=== PATIENT | female | born 1965 | race Caucasian/White ===

== ENCOUNTER 2017-12-28 11:17 | Emergency (ER) | payer OTHER, BC ==
[2017-12-28 11:23] VITALS: BP 140/85; PULSE 66; TEMP 97; BMI 38.7
--- NOTE | 2017-12-28 11:54 | PDOC ---
History of Present Illness - General Chief Complaint: Injury Stated Complaint: INJURY Time Seen by Provider: 12/28/17 11:44 - History of Present Illness Initial Comments: 12/28/17 11:59 52 yo F with no significant pmh who presents with ALBERTO 2/2 closed head injury. 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 The ladder hit the left side temporal region of pt. head and she hit the right side of her head on the side of concrete wall. Now with dull left sided temporal ALBERTO. ALBERTO is stable non radiating. Denies LOC, but endorses transient episode of lightheadedness, following trauma. Denies neck/ back trauma, laceration, convulsion, confusion, vertigo, tinnitus, neck stiffness, facial injury, weakness, sensory change. Denies N/V, F/C, CP, SOB, abdominal pain. Denies anticoagulation. Denies OTC pain management. Past History - Past Medical History Allergies/Adverse Reactions: Allergies Allergy/AdvReac Type Severity Reaction Status Date / Time Sulfa (Sulfonamide Allergy Hives Verified 12/28/17 11:19 Antibiotics) [Sulfa(Sulfonamide Antibiotics)] Home Medications: Ambulatory Orders Fluoxetine HCl [Prozac] 20 mg PO DAILY 04/13/12 Anemia: No Asthma: No Cancer: No Cardiac Disorders: No CVA: No COPD: No CHF: No Dementia: No Diabetes: No GI Disorders: No Disorders: No HTN: No Hypercholesterolemia: No Liver Disease: No Seizures: No Thyroid Disease: No - Surgical History Abdominal Surgery: No Appendectomy: No Cardiac Surgery: No Cholecystectomy: No Lung Surgery: No Neurologic Surgery: No Orthopedic Surgery: No - Suicide/Smoking/Psychosocial Hx Smoking Status: No Smoking History: Never smoked Have you smoked in the past 12 months: No Number of Cigarettes Smoked Daily: 0 Information on smoking cessation initiated: No Hx Alcohol Use: No Drug/Substance Use Hx: No Substance Use Type: None Hx Substance Use Treatment: No Review of Systems - Review of Systems Comments:: 12/28/17 11:49 GENERAL/CONSTITUTIONAL: No fever or chills. No weakness. HEAD, EYES, EARS, NOSE AND THROAT: No change in vision. No ear pain or discharge. No sore throat.- CARDIOVASCULAR: No chest pain or shortness of breath RESPIRATORY: No cough, wheezing, or hemoptysis. GASTROINTESTINAL: No nausea, vomiting, diarrhea or constipation. GENITOURINARY: No dysuria, frequency, or change in urination. MUSCULOSKELETAL: No joint or muscle swelling or pain. No neck or back pain. SKIN: No rash NEUROLOGIC:+ headache. No vertigo, loss of consciousness, or change in strength/sensation. ENDOCRINE: No increased thirst. No abnormal weight change HEMATOLOGIC/LYMPHATIC: No anemia, easy bleeding, or history of blood clots. ALLERGIC/IMMUNOLOGIC: No hives or skin allergy. *Physical Exam - Vital Signs Last Vital Signs Temp Pulse Resp BP Pulse Ox 97.0 F L 66 18 140/85 100 12/28/17 11:20 12/28/17 11:20 12/28/17 11:20 12/28/17 11:20 12/28/17 11:20 - Physical Exam Comments: 12/28/17 11:49 GENERAL: Awake, alert, and fully oriented, in no acute distress HEAD: + Left temporal- parietal ttp. No signs of trauma, normocephalic, atraumatic EYES: PERRLA, EOMI, sclera anicteric, conjunctiva clear ENT: Hearing grossly normal, nares patent, oropharynx clear without exudates. Moist mucosa NECK: Absent c spine ttp. Normal ROM, supple, no lymphadenopathy, JVD, or masses LUNGS: No distress, speaks full sentences, clear to auscultation bilaterally HEART: Regular rate and rhythm, normal S1 and S2, no murmurs, rubs or gallops, peripheral pulses normal and equal bilaterally. EXTREMITIES : Normal inspection, Normal range of motion, no edema. No clubbing or cyanosis. NEUROLOGICAL: Cranial nerves II through XII grossly intact. Normal speech, normal gait, no focal sensorimotor deficits. Normal BRIGIDO. absent dysmetria on FTN. 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 Head trauma sustained while pulling ladder from closet and hit the left side temporal region headwith counter right sided head injury to concrete wall. + Transient lightheadedness following injury. Denies LOC, neck/back trauma, laceration, convulsion, confusion, vertigo, tinnitus, neck stiffness, facial injury, weakness, sensory change. Denies N/V, F/C, CP, SOB, abdominal pain. Denies anticoagulation. Physical exam with left sided temporal-occipital ttp. Absent neuro deficits. Hemodynamically stable. Will head imaging to r/o SAH, vs. hematoma 2/2 recent head trauma. No evidence of basilar skull fracture on physical exam. Low suspicion of spinal injury. Patient low risk C-spine injury based on NEXUS criteria. ED Course: CT HEAD Patient declines pain control. 12/28/17 13:48 CT HEAD: No acute hemorrhage or fracture. Patient stable for d/c with return precautions. Advised to f/u with outpatient PMD. *DC/Admit/Observation/Transfer Diagnosis at time of Disposition: Closed head injury Qualifiers: Encounter type: initial encounter Qualified Code(s): S09.90XA - Unspecified injury of head, initial encounter - Discharge Dispostion Condition at time of disposition: Stable Admit: No - Referrals Referrals: Maddie Spencer [Primary Care Provider] - - Patient Instructions Printed Discharge Instructions: DI for Closed Head Injury, DI for Postconcussion Syndrome Additional Instructions: Please return to the emergency department with any new or worsening symptoms or concerns. Please follow up with primary care physician within the next 1 week. - Post Discharge Activity Forms/Work/School Notes: Back to Work - Attestations Physician Attestion: 12/28/17 12:21 I attest to the information provided in this note.
--- NOTE | 2017-12-28 13:14 | PDOC ---
Attending Attestation - Resident Resident Name: Kev Rosario - ED Attending Attestation I have performed the following: I have examined & evaluated the patient, The case was reviewed & discussed with the resident, I agree w/resident's findings & plan, Exceptions are as noted - HPI HPI: 12/28/17 13:12 healthy 52y/o F with minor and isolated head injury after ladder tipped over and struck her head, then causing second strike on wall. no LOC, no n/v/vision change/focal deficit. - Physicial Exam PE: 12/28/17 13:13 VSS, alert and well appearing tender scalp but no bony deformity neuro intact - Medical Decision Making 12/28/17 13:13 Patient seen and evaluated with the resident. I agree with the overall evaluation, assessment, and management with the following summary of visit: 52-year-old female with minor head injury, neurologically intact. Not on anticoagulants. CT head Reassurance
== END 2017-12-28 14:30 | disposition home or self-care (01) ==
LOC: JER 11:17
DX: S09.8XXA Other specified injuries of head, initial encounter (principal); G44.319 Acute post-traumatic headache, not intractable; W22.8XXA Striking against or struck by other objects, initial encounter; Y93.89 Activity, other specified; Y92.211 Elementary school as the place of occurrence of the external cause; Y99.0 Civilian activity done for income or pay
CPT/HCPCS: 70450-TC; 99282-25